=== PATIENT | female | born 1935 | race Caucasian/White ===

== ENCOUNTER → 2020-10-13 | Outpatient (CLI) | payer OTHER ==
[~2020-10-13] MED LIST: ANTIVERT 12.512.5 MG PO; B-COMPLEX WITH1 EACH PO; BETAPACE80 MG PO; CALCIUM600 MG PO; CELEXA20 MG PO; DILTIAZEM HCL120 MG PO; FISH OIL 1,0001 EAC4 PO; LEVAQUIN500 MG PO; LOTENSIN TAB 1010 MG PO; PLAVIX 75 MG TA75 MG PO; PRAVACHOL20 MG PO; PREDFORTE OP SUS5 ML OU; PROTONIX40 MG PO; SYNTHROID25 MCG PO; TYLENOL W/CODEIN1 E1 PO; VIT D PO
== END ==
LOC: KOH-I 14:36
DX: M54.5 Low back pain (principal); M25.551 Pain in right hip; M51.36 Other intervertebral disc degeneration, lumbar region; M43.16 Spondylolisthesis, lumbar region
CPT/HCPCS: 72100; 73502

== ENCOUNTER → 2020-10-30 | Outpatient (CLI) | payer OTHER | LOC: KOH-I 10-20 09:00 | DX: M51.16 Intervertebral disc disorders with radiculopathy, lumbar region (principal); M43.16 Spondylolisthesis, lumbar region; M47.816 Spondylosis without myelopathy or radiculopathy, lumbar region; R29.898 Other symptoms and signs involving the musculoskeletal system | CPT/HCPCS: 72131 ==

== ENCOUNTER → 2020-11-10 | Outpatient (CLI) | payer OTHER | LOC: KOH-I 16:24 | DX: R07.81 Pleurodynia (principal); M25.571 Pain in right ankle and joints of right foot; M25.471 Effusion, right ankle | CPT/HCPCS: 71101; 73610 ==